=== PATIENT | male | born 1985 | race Caucasian/White ===

== ENCOUNTER 2018-12-26 21:26 | Emergency (ER) | payer BC ==
[~2018-12-26] VITALS: Ht 190.5 cm; Wt 90.7 kg
[2018-12-26] MEDS ORDERED: ONDANSETRON HCL 4 MG/2 ML VIAL IV ONE ×2 (22:45→23:45)
[2018-12-26] MEDS ORDERED: HYDROmorphone HCL 2 MG/ML VL IV ONE (22:45)
[2018-12-26] MEDS ORDERED: ETOMIDATE (2MG/ML) 20ML VIAL IV ONE (23:00)
[2018-12-26] MEDS ORDERED: MORPHINE SULFATE 4 MG/ML SYR/VIAL IV ONE (23:45)
[2018-12-27 00:40] VITALS: BP 115/68
== END 2018-12-27 01:30 | disposition home or self-care (01) ==
LOC: ER 21:26
DX: S82.842A Displaced bimalleolar fracture of left lower leg, initial encounter for closed fracture (principal); F17.210 Nicotine dependence, cigarettes, uncomplicated; F12.10 Cannabis abuse, uncomplicated; Z88.0 Allergy status to penicillin; W01.0XXA Fall on same level from slipping, tripping and stumbling without subsequent striking against object, initial encounter; Y93.89 Activity, other specified; Y92.89 Other specified places as the place of occurrence of the external cause; Y99.8 Other external cause status
CPT/HCPCS: 27808; 73600; 73610; 96374; 96375; 96376; 99285; J1170; J2270; J2405